=== PATIENT | male | born 1965 | race Caucasian/White ===

== ENCOUNTER 2022-09-08 21:09 | Inpatient (IN) | payer SELFPAY ==
[~2022-09-08] VITALS: Ht 175.3 cm; Wt 94.3 kg
[2022-09-08 21:09] VITALS: BP_SYST 160
[2022-09-08] MEDS ORDERED: NACL 0.9% 1,000 ML IV ONE ×2 (21:30→22:30)
[2022-09-08 21:55] LABS: BASOPHILS # (AUTO) 0.1 K/uL (0.0-0.2); BASOPHILS % (AUTO) 0.8 % (0.0-2.0); EOSINOPHILS % (AUTO) 0.1 % (0.0-4.0); HEMATOCRIT 31.5 % (36-54); LYMPHOCYTES % (AUTO) 5.7 % (20.5-51.5); MEAN CORPUSCULAR HEMOGLOBIN 26 pg (27-31); MEAN CORPUSCULAR HGB CONC 32 % (32-36); MEAN CORPUSCULAR VOLUME 81 fL (79.0-98.0); MONOCYTES # (AUTO) 0.6 K/uL (0.0-1.0); MONOCYTES % (AUTO) 3.6 % (1.7-9.3); NEUTROPHILS # (AUTO) 15.5 K/uL (1.8-7.7); NEUTROPHILS % (AUTO) 89.8 % (40.0-70.0); PLATELET COUNT (AUTO) 421 K/uL (130-430); RED BLOOD CELL COUNT(AUTO) 3.87 MIL/uL (4.2-6.2); RED CELL DISTRIBUTION WIDTH 17.5 % (9.0-15.0); WHITE BLOOD COUNT (AUTO) 17.3 K/uL (4.8-10.8)
[2022-09-08] MEDS ORDERED: cefTRIAXone 1 GM in D5W 50 ML IV ONE (22:00)
[2022-09-08] MEDS ORDERED: AZITHROMYCIN 500 MG in NS 250 ML IV ONE (22:00)
[2022-09-08 22:09] LABS: ANION GAP 11 (5-15); CALCIUM 9.3 mg/dL (8.4-11.0); CHLORIDE 95 mmol/L (98-107); CREATININE 1.29 mg/dL (0.55-1.30); GFR AFRICAN AMERICAN 74 mL/min (>90); GLUCOSE 278 mg/dL (70-99); UREA NITROGEN, BLOOD 25 mg/dL (8-21)
[2022-09-08 22:27] LABS: ALANINE AMINOTRANSFERASE 18 U/L (12-78); ALBUMIN 2.4 g/dL (3.4-4.8); ASPARTATE AMINOTRANSFERASE 16 U/L (10-37); TOTAL BILIRUBIN 0.9 mg/dL (0.0-1.0)
[2022-09-08] MEDS ORDERED: cefTRIAXone 1 GM VIAL ONE (22:29)
[2022-09-08] MEDS ORDERED: AZITHROMYCIN 500 MG/VIAL (ZITHROMAX) IV ONE (22:30)
[2022-09-08] MEDS ORDERED: ASPIRIN 81 MG TAB.CHEW PO ONE (22:45)
[2022-09-09] MEDS ORDERED: IPRATROPIUM/ALBUTEROL SULFATE 3 ML AMPUL.NEB (DUONEB) INH PRN
[2022-09-09 00:34] LABS: BILIRUBIN,URINE NEGATIVE (NEGATIVE); BLOOD, URINE NEGATIVE (NEGATIVE); CLARITY/URINE CLEAR (CLEAR); COLOR,URINE YELLOW (YELLOW); GLUCOSE,URINE NEGATIVE (NEGATIVE); KETONES,URINE TRACE (NEGATIVE); LEUKOCYTE ESTERASE ,URINE NEGATIVE (NEGATIVE); NITRITE, URINE NEGATIVE (NEGATIVE); PROTEIN URINE 2+ (NEGATIVE)
[2022-09-09 00:35] LABS: BARBITURATE, URINE NEGATIVE (NEG <=200); BENZODIAZEPINE, URINE NEGATIVE (NEG <=150); CANNABINOID, URINE NEGATIVE (NEG <=50); COCAINE, URINE NEGATIVE (NEG <=150); METHAMPHETAMINES SCREEN,URINE NEGATIVE (NEG <=500); OPIATE, URINE NEGATIVE (NEG <=100); PHENCYCLIDINE SCREEN,URINE NEGATIVE (NEG <=25); UR TRICYCLIC ANTIDEPRESSANTS NEGATIVE (NEG <=300); URINE AMPHETAMINE NEGATIVE (NEG <=500); URINE METHADONE NEGATIVE (NEG <=200); URINE OXYCODONE SCREEN POSITIVE (NEG <=100); URINE PROPOXYPHENE SCREEN NEGATIVE (NEG <=300)
[2022-09-09 00:45] LABS: BACTERIA,URINE None Seen /HPF (None Seen); HYALINE CASTS, URINE 0-10 /LPF (None Seen); RBC,URINE 0-3 /HPF (0-3); WBC,URINE 0-3 /HPF (0-3)
[2022-09-09] MEDS ORDERED: PIPERACILLIN/TAZOBACTAM 3.375 GM/VIAL (ZOSYN) IV ONE (01:21)
[2022-09-09] MEDS: PIPERACILLIN/TAZOBACTAM 3.375 GM/ D5W 50 ML IV SCH ×10 (01:22→23:12)
[2022-09-09] MEDS: NACL 0.9% 1,000 ML IV SCH ×2 (01:23→13:00)
[2022-09-09 03:42] VITALS: BP_SYST 97
[2022-09-09] MEDS ORDERED: ACETAMINOPHEN 325 MG TABLET PO PRN (06:00)
[2022-09-09] MEDS ORDERED: POTASSIUM CHLORIDE 20 MEQ TAB.PRT.SR PO PRN (06:00)
[2022-09-09] MEDS ORDERED: MAGNESIUM SULFATE 50 ML IV PRN (06:00)
[2022-09-09] MEDS ORDERED: DOCUSATE SODIUM 100 MG CAPSULE PO PRN (06:00)
[2022-09-09] MEDS ORDERED: LORazepam 2 MG/ML VIAL IVP PRN (06:00)
[2022-09-09] MEDS ORDERED: NALOXONE HCL 0.4 MG/ML AMP (NARCAN) IVP PRN ×2 (06:00)
[2022-09-09] MEDS ORDERED: ONDANSETRON HCL 4 MG/2 ML VIAL IVP PRN (06:00)
[2022-09-09] MEDS ORDERED: DEXTROSE 50% JECT 50 ML DISP.SYRIN IVP PRN (06:00)
[2022-09-09] MEDS ORDERED: MUPIROCIN 2% TOPICAL OINTMENT 22 GM NS PRN (06:00)
[2022-09-09] MEDS ORDERED: MORPHINE 2 MG/ML INJ. SYRINGE IVP PRN (06:00)
[2022-09-09 08:30] VITALS: BP_SYST 90
[2022-09-09] MEDS ORDERED: METOPROLOL TARTRATE 25 MG TABLET PO ONE (09:45)
[2022-09-09] MEDS: FUROSEMIDE 40 MG/4 ML VIAL IVP SCH (11:44)
[2022-09-09] MEDS: MORPHINE 2 MG/ML INJ. SYRINGE IVP PRN ×2 (11:52→23:21)
[2022-09-09 12:02] VITALS: BP_SYST 107
[2022-09-09] MEDS: INSULIN LISPRO SLIDING SCALE 100 UNITS/ML, 3 ML VIAL (humaLOG) SUBCUT PRN (12:57)
[2022-09-09] MEDS: IPRATROPIUM/ALBUTEROL SULFATE 3 ML AMPUL.NEB (DUONEB) INH SCH ×2 (13:17→19:47)
[2022-09-09] MEDS ORDERED: LIP20 PO (13:44)
[2022-09-09] MEDS ORDERED: LABE200T9 PO (13:44)
[2022-09-09] MEDS ORDERED: PROXL60 PO (13:44)
[2022-09-09] MEDS ORDERED: HYDR100T25 PO (13:44)
[2022-09-09 16:12] VITALS: BP_SYST 114
[2022-09-09] MEDS: AZITHROMYCIN 500 MG in NS 250 ML IV SCH (16:13)
[2022-09-09 20:00] VITALS: BP_SYST 135
[2022-09-09] MEDS: ZOLPIDEM TARTRATE 5 MG TABLET PO PRN (20:53)
[2022-09-09] MEDS ORDERED: METOPROLOL TARTRATE 25 MG TABLET PO SCH (21:00)
[2022-09-10] VITALS (15 sets, daily range): BP systolic 106–144
[2022-09-10] MEDS: NACL 0.9% 1,000 ML IV SCH ×2 (03:27→22:00)
[2022-09-10] MEDS: IPRATROPIUM/ALBUTEROL SULFATE 3 ML AMPUL.NEB (DUONEB) INH SCH ×4 (03:38→19:21)
[2022-09-10] MEDS: MORPHINE 2 MG/ML INJ. SYRINGE IVP PRN (04:51)
[2022-09-10 05:28] LABS: BASOPHILS % (AUTO) 0.2 % (0.0-2.0); EOSINOPHILS # (AUTO) 0.2 K/uL (0.0-0.4); EOSINOPHILS % (AUTO) 1.1 % (0.0-4.0); HEMATOCRIT 26.7 % (36-54); HEMOGLOBIN 8.7 g/dL (14.0-18.0); LYMPHOCYTES # (AUTO) 0.9 K/uL (1.0-5.5); LYMPHOCYTES % (AUTO) 5.2 % (20.5-51.5); MEAN CORPUSCULAR HEMOGLOBIN 26 pg (27-31); MEAN CORPUSCULAR HGB CONC 33 % (32-36); MEAN CORPUSCULAR VOLUME 81 fL (79.0-98.0); MONOCYTES # (AUTO) 0.6 K/uL (0.0-1.0); MONOCYTES % (AUTO) 3.7 % (1.7-9.3); NEUTROPHILS % (AUTO) 89.8 % (40.0-70.0); PLATELET COUNT (AUTO) 356 K/uL (130-430); RED BLOOD CELL COUNT(AUTO) 3.31 MIL/uL (4.2-6.2); RED CELL DISTRIBUTION WIDTH 17.8 % (9.0-15.0); WHITE BLOOD COUNT (AUTO) 16.8 K/uL (4.8-10.8)
[2022-09-10 05:59] LABS: CALCIUM 8.9 mg/dL (8.4-11.0); CREATININE 1.01 mg/dL (0.55-1.30); THYROID STIMULATING HORMONE 1.03 uIu/mL (0.34-4.82); TOTAL BILIRUBIN 0.7 mg/dL (0.0-1.0)
[2022-09-10] MEDS: PIPERACILLIN/TAZOBACTAM 3.375 GM/ D5W 50 ML IV SCH ×6 (06:08→18:11)
[2022-09-10 07:26] LABS: TOTAL IRON BIND. CAPACITY 137 ug/dL (250-450)
[2022-09-10] MEDS: FUROSEMIDE 40 MG/4 ML VIAL IVP SCH (07:49)
[2022-09-10] MEDS ORDERED: iohexoL 350 mgI/mL, 100 ML INFUS..BTL IV ONE (08:38)
[2022-09-10] MEDS ORDERED: METHYLPREDNISOLONE SOD SUCC 40 MG/ML VIAL IVP ONE (09:00)
[2022-09-10] MEDS ORDERED: METOPROLOL TARTRATE 25 MG TABLET PO ONE (10:30)
[2022-09-10] MEDS ORDERED: VANCOMYCIN HCL 1.25 GM/NS 250 ML IV ONE (12:00)
[2022-09-10] MEDS: AZITHROMYCIN 500 MG in NS 250 ML IV SCH (14:00)
[2022-09-10] MEDS: METHYLPREDNISOLONE SOD SUCC 40 MG/ML VIAL IVP SCH ×2 (17:21→22:01)
[2022-09-10] MEDS: INSULIN LISPRO SLIDING SCALE 100 UNITS/ML, 3 ML VIAL (humaLOG) SUBCUT PRN ×2 (18:11→22:02)
[2022-09-10] MEDS: METOPROLOL TARTRATE 25 MG TABLET PO SCH (22:00)
[2022-09-11] VITALS (19 sets, daily range): BP systolic 96–119
[2022-09-11] MEDS: PIPERACILLIN/TAZOBACTAM 3.375 GM/ D5W 50 ML IV SCH ×10 (00:47→23:35)
[2022-09-11] MEDS: IPRATROPIUM/ALBUTEROL SULFATE 3 ML AMPUL.NEB (DUONEB) INH SCH ×4 (01:00→19:39)
[2022-09-11] MEDS: NACL 0.9% 1,000 ML IV SCH ×2 (04:03→14:30)
[2022-09-11 05:01] LABS: BASOPHILS % (AUTO) 0.4 % (0.0-2.0); HEMATOCRIT 25.5 % (36-54); HEMOGLOBIN 8.3 g/dL (14.0-18.0); LYMPHOCYTES # (AUTO) 0.5 K/uL (1.0-5.5); LYMPHOCYTES % (AUTO) 3.9 % (20.5-51.5); MEAN CORPUSCULAR HEMOGLOBIN 27 pg (27-31); MEAN CORPUSCULAR HGB CONC 33 % (32-36); MEAN CORPUSCULAR VOLUME 81 fL (79.0-98.0); MONOCYTES # (AUTO) 0.2 K/uL (0.0-1.0); MONOCYTES % (AUTO) 1.7 % (1.7-9.3); NEUTROPHILS # (AUTO) 11.8 K/uL (1.8-7.7); PLATELET COUNT (AUTO) 370 K/uL (130-430); RED BLOOD CELL COUNT(AUTO) 3.15 MIL/uL (4.2-6.2); RED CELL DISTRIBUTION WIDTH 17.7 % (9.0-15.0); WHITE BLOOD COUNT (AUTO) 12.5 K/uL (4.8-10.8)
[2022-09-11 05:14] LABS: ALBUMIN 1.9 g/dL (3.4-4.8); CALCIUM 8.7 mg/dL (8.4-11.0); CREATININE 0.98 mg/dL (0.55-1.30); TOTAL BILIRUBIN 0.5 mg/dL (0.0-1.0)
[2022-09-11] MEDS: METHYLPREDNISOLONE SOD SUCC 40 MG/ML VIAL IVP SCH ×3 (06:57→21:23)
[2022-09-11] MEDS: INSULIN LISPRO SLIDING SCALE 100 UNITS/ML, 3 ML VIAL (humaLOG) SUBCUT PRN ×4 (07:00→21:26)
[2022-09-11 08:06] LABS: FERRITIN 486 ng/mL (30-400)
[2022-09-11] MEDS: METOPROLOL TARTRATE 25 MG TABLET PO SCH ×2 (09:25→21:23)
[2022-09-11] MEDS ORDERED: FUROSEMIDE 40 MG/4 ML VIAL IVP ONE (09:30)
[2022-09-11] MEDS: AZITHROMYCIN 500 MG in NS 250 ML IV SCH (13:37)
[2022-09-11] MEDS: ZOLPIDEM TARTRATE 5 MG TABLET PO PRN (23:35)
[2022-09-11] MEDS: MORPHINE 2 MG/ML INJ. SYRINGE IVP PRN (23:36)
[2022-09-12] VITALS: BP_SYST 110
[2022-09-12] MEDS: IPRATROPIUM/ALBUTEROL SULFATE 3 ML AMPUL.NEB (DUONEB) INH SCH ×4 (01:00→19:54)
[2022-09-12] MEDS: NACL 0.9% 1,000 ML IV SCH ×3 (03:00→23:04)
[2022-09-12 05:32] LABS: HEMATOCRIT 25.7 % (36-54); HEMOGLOBIN 8.3 g/dL (14.0-18.0); LYMPHOCYTES # (AUTO) 0.6 K/uL (1.0-5.5); LYMPHOCYTES % (AUTO) 3.7 % (20.5-51.5); MEAN CORPUSCULAR HEMOGLOBIN 26 pg (27-31); MEAN CORPUSCULAR HGB CONC 32 % (32-36); MEAN CORPUSCULAR VOLUME 80 fL (79.0-98.0); MONOCYTES # (AUTO) 0.4 K/uL (0.0-1.0); MONOCYTES % (AUTO) 2.6 % (1.7-9.3); NEUTROPHILS # (AUTO) 15.7 K/uL (1.8-7.7); NEUTROPHILS % (AUTO) 93.7 % (40.0-70.0); PLATELET COUNT (AUTO) 413 K/uL (130-430); RED CELL DISTRIBUTION WIDTH 17.3 % (9.0-15.0); WHITE BLOOD COUNT (AUTO) 16.8 K/uL (4.8-10.8)
[2022-09-12 05:52] LABS: CALCIUM 8.6 mg/dL (8.4-11.0); CREATININE 1.12 mg/dL (0.55-1.30)
[2022-09-12] MEDS: PIPERACILLIN/TAZOBACTAM 3.375 GM/ D5W 50 ML IV SCH ×8 (06:11→23:04)
[2022-09-12] MEDS: METHYLPREDNISOLONE SOD SUCC 40 MG/ML VIAL IVP SCH ×2 (06:11→17:52)
[2022-09-12] MEDS: INSULIN LISPRO SLIDING SCALE 100 UNITS/ML, 3 ML VIAL (humaLOG) SUBCUT PRN ×4 (06:15→20:57)
[2022-09-12 08:00] VITALS: BP_SYST 135
[2022-09-12] MEDS: METOPROLOL TARTRATE 25 MG TABLET PO SCH ×2 (10:01→20:56)
[2022-09-12] MEDS: FUROSEMIDE 40 MG TABLET PO SCH (10:01)
[2022-09-12 10:16] VITALS: BP_SYST 135
[2022-09-12 12:00] VITALS: BP_SYST 118
[2022-09-12] MEDS: AZITHROMYCIN 500 MG in NS 250 ML IV SCH (13:54)
[2022-09-12 16:00] VITALS: BP_SYST 124
[2022-09-12 20:00] VITALS: BP_SYST 110
[2022-09-13 00:36] VITALS: BP_SYST 116
[2022-09-13] MEDS: IPRATROPIUM/ALBUTEROL SULFATE 3 ML AMPUL.NEB (DUONEB) INH SCH ×4 (01:00→19:46)
[2022-09-13] MEDS: METHYLPREDNISOLONE SOD SUCC 40 MG/ML VIAL IVP SCH ×2 (06:06→18:06)
[2022-09-13] MEDS: PIPERACILLIN/TAZOBACTAM 3.375 GM/ D5W 50 ML IV SCH ×8 (06:06→23:40)
[2022-09-13] MEDS: MORPHINE 2 MG/ML INJ. SYRINGE IVP PRN (06:07)
[2022-09-13] MEDS: INSULIN LISPRO SLIDING SCALE 100 UNITS/ML, 3 ML VIAL (humaLOG) SUBCUT PRN ×4 (06:07→20:58)
[2022-09-13 06:26] LABS: HEMATOCRIT 27.7 % (36-54); HEMOGLOBIN 8.9 g/dL (14.0-18.0); LYMPHOCYTES # (AUTO) 1.2 K/uL (1.0-5.5); LYMPHOCYTES % (AUTO) 7.5 % (20.5-51.5); MEAN CORPUSCULAR HEMOGLOBIN 26 pg (27-31); MEAN CORPUSCULAR HGB CONC 32 % (32-36); MEAN CORPUSCULAR VOLUME 81 fL (79.0-98.0); MONOCYTES # (AUTO) 0.7 K/uL (0.0-1.0); MONOCYTES % (AUTO) 4.4 % (1.7-9.3); NEUTROPHILS # (AUTO) 14.6 K/uL (1.8-7.7); NEUTROPHILS % (AUTO) 88.1 % (40.0-70.0); PLATELET COUNT (AUTO) 448 K/uL (130-430); RED BLOOD CELL COUNT(AUTO) 3.43 MIL/uL (4.2-6.2); RED CELL DISTRIBUTION WIDTH 17.8 % (9.0-15.0); WHITE BLOOD COUNT (AUTO) 16.6 K/uL (4.8-10.8)
[2022-09-13 06:42] LABS: CREATININE 1.05 mg/dL (0.55-1.30)
[2022-09-13 08:00] VITALS: BP_SYST 140
[2022-09-13] MEDS: METOPROLOL TARTRATE 25 MG TABLET PO SCH ×2 (09:38→20:55)
[2022-09-13] MEDS: FUROSEMIDE 40 MG TABLET PO SCH (09:39)
[2022-09-13 11:47] VITALS: BP_SYST 130
[2022-09-13 12:00] VITALS: BP_SYST 130
[2022-09-13] MEDS: AZITHROMYCIN 500 MG in NS 250 ML IV SCH (13:16)
[2022-09-13 16:36] VITALS: BP_SYST 129
[2022-09-13] MEDS: NACL 0.9% 1,000 ML IV SCH (16:53)
[2022-09-13 20:00] VITALS: BP_SYST 146
[2022-09-14] VITALS: BP_SYST 124
[2022-09-14] MEDS: IPRATROPIUM/ALBUTEROL SULFATE 3 ML AMPUL.NEB (DUONEB) INH SCH ×4 (01:09→20:05)
[2022-09-14] MEDS: ZOLPIDEM TARTRATE 5 MG TABLET PO PRN (01:22)
[2022-09-14] MEDS: MORPHINE 2 MG/ML INJ. SYRINGE IVP PRN (05:52)
[2022-09-14] MEDS: METHYLPREDNISOLONE SOD SUCC 40 MG/ML VIAL IVP SCH ×2 (06:50→17:48)
[2022-09-14] MEDS: PIPERACILLIN/TAZOBACTAM 3.375 GM/ D5W 50 ML IV SCH ×6 (06:50→17:48)
[2022-09-14] MEDS: NACL 0.9% 1,000 ML IV SCH ×2 (06:51→17:30)
[2022-09-14 06:54] LABS: EOSINOPHILS % (AUTO) 0.1 % (0.0-4.0); HEMATOCRIT 28.8 % (36-54); HEMOGLOBIN 9.2 g/dL (14.0-18.0); LYMPHOCYTES # (AUTO) 1.4 K/uL (1.0-5.5); LYMPHOCYTES % (AUTO) 7.9 % (20.5-51.5); MEAN CORPUSCULAR HEMOGLOBIN 26 pg (27-31); MEAN CORPUSCULAR HGB CONC 32 % (32-36); MEAN CORPUSCULAR VOLUME 81 fL (79.0-98.0); MONOCYTES # (AUTO) 0.9 K/uL (0.0-1.0); MONOCYTES % (AUTO) 5.3 % (1.7-9.3); NEUTROPHILS # (AUTO) 15.6 K/uL (1.8-7.7); NEUTROPHILS % (AUTO) 86.7 % (40.0-70.0); PLATELET COUNT (AUTO) 480 K/uL (130-430); RED BLOOD CELL COUNT(AUTO) 3.55 MIL/uL (4.2-6.2); RED CELL DISTRIBUTION WIDTH 17.8 % (9.0-15.0)
[2022-09-14] MEDS: INSULIN LISPRO SLIDING SCALE 100 UNITS/ML, 3 ML VIAL (humaLOG) SUBCUT PRN ×4 (06:55→21:00)
[2022-09-14 07:18] LABS: CREATININE 1.08 mg/dL (0.55-1.30)
[2022-09-14 08:15] VITALS: BP_SYST 144
[2022-09-14] MEDS: FUROSEMIDE 40 MG TABLET PO SCH (08:21)
[2022-09-14] MEDS: METOPROLOL TARTRATE 25 MG TABLET PO SCH ×2 (08:22→20:55)
[2022-09-14 12:01] VITALS: BP_SYST 132
[2022-09-14 15:51] VITALS: BP_SYST 147
[2022-09-14 20:00] VITALS: BP_SYST 157
[2022-09-15] MEDS: PIPERACILLIN/TAZOBACTAM 3.375 GM/ D5W 50 ML IV SCH ×4 (00:12→05:32)
[2022-09-15 01:16] VITALS: BP_SYST 136
[2022-09-15] MEDS: IPRATROPIUM/ALBUTEROL SULFATE 3 ML AMPUL.NEB (DUONEB) INH SCH ×3 (01:26→13:00)
[2022-09-15] MEDS: METHYLPREDNISOLONE SOD SUCC 40 MG/ML VIAL IVP SCH (05:54)
[2022-09-15] MEDS: INSULIN LISPRO SLIDING SCALE 100 UNITS/ML, 3 ML VIAL (humaLOG) SUBCUT PRN ×2 (06:55→12:27)
[2022-09-15 07:44] VITALS: BP_SYST 136
[2022-09-15 08:06] VITALS: BP_SYST 146
[2022-09-15] MEDS ORDERED: AMOX-520 PO ×3 (08:20→08:37)
[2022-09-15] MEDS ORDERED: METH-776 PO (08:20)
[2022-09-15] MEDS ORDERED: AMOX250C PO ×2 (08:23)
[2022-09-15] MEDS ORDERED: ALBMDI INH (08:26)
[2022-09-15] MEDS: FUROSEMIDE 40 MG TABLET PO SCH (09:28)
[2022-09-15] MEDS: METOPROLOL TARTRATE 25 MG TABLET PO SCH (09:34)
[2022-09-15 11:47] VITALS: BP_SYST 151
[2022-09-15] MEDS ORDERED: AMPICILLIN SODIUM 2 GM in NS 100 ML IV SCH (12:00)
[2022-09-15 12:41] VITALS: BP_SYST 137
[2022-09-15] MEDS ORDERED: DOXYCYCLINE HYCLATE 100 MG in D5W 100 ML IV SCH (21:00)
== END 2022-09-15 14:30 | disposition home or self-care (01) | DRG 871 ==
LOC: SED 21:09 → STU 23:50 → SIC 09-09 08:27 → STU 09-11 19:25
PROVIDERS: ADMIT General Practice; ATTEND General Practice
PROC: 5A0935A Assistance with Respiratory Ventilation, Less than 24 Consecutive Hours, High Flow/Velocity Cannula (ICD-10-PCS; principal; 2022-09-10)
PROC: 5A0935A Assistance with Respiratory Ventilation, Less than 24 Consecutive Hours, High Flow/Velocity Cannula (ICD-10-PCS; 2022-09-11)
DX: A40.8 Other streptococcal sepsis (principal); I21.A1 Myocardial infarction type 2; J18.9 Pneumonia, unspecified organism; I50.43 Acute on chronic combined systolic (congestive) and diastolic (congestive) heart failure; J80 Acute respiratory distress syndrome; E87.1 Hypo-osmolality and hyponatremia; I38 Endocarditis, valve unspecified; E86.0 Dehydration; G89.29 Other chronic pain; M54.50 Low back pain, unspecified; E78.5 Hyperlipidemia, unspecified; M48.061 Spinal stenosis, lumbar region without neurogenic claudication; Z20.822 Contact with and (suspected) exposure to COVID-19; E11.9 Type 2 diabetes mellitus without complications; I11.0 Hypertensive heart disease with heart failure; Z86.73 Personal history of transient ischemic attack (TIA), and cerebral infarction without residual deficits; Z79.899 Other long term (current) drug therapy
CPT/HCPCS: 36415; 36600; 71045; 71275; 76376; 80048; 80053; 80307; 81000; 82607; 82728; 82803; 82962; 83037; 83540; 83550; 83605; 83690; 83735; 83880; 84443; 84484; 85025; 85379; 85651-TC; 87040; 87081; 87186-TC; 93005; 93306; 94640; 94760; 96365; 96368; 99291; G0378; J0290; J0456; J0696; J1030; J1940; J2270; J2543; J3370; J7030; J7050; J7060; Q9967